=== PATIENT | female | born 1995 | race Caucasian/White ===

== ENCOUNTER 2018-01-10 16:11 | Emergency (ER) | payer OTHER ==
[~2018-01-10] VITALS: Ht 160 cm; Wt 69.9 kg
[2018-01-10 16:19] VITALS: BP 135/95
--- NOTE | 2018-01-10 16:50 | NUR ---
CALLED TO A BED, NO ANSWER
--- NOTE | 2018-01-10 16:52 | NUR ---
Jessica youssef in [facility] - 01/10/18 at 1656 by EVAN PATIENT AMB. TO BED #12
== END 2018-01-10 16:50 | disposition left against medical advice (07) ==
LOC: MED 16:11
DX: R51 Headache (principal); Z53.21 Procedure and treatment not carried out due to patient leaving prior to being seen by health care provider

== ENCOUNTER 2018-11-06 04:50 | Emergency (ER) | payer OTHER ==
[~2018-11-06] VITALS: Ht 160 cm; Wt 73.0 kg
[2018-11-06 04:56] VITALS: BP 139/113
[2018-11-06] MEDS ORDERED: KETOROLAC 60 MG/2 ML VIAL IM ONE (05:10)
[2018-11-06 05:34] VITALS: BP 139/113
== END 2018-11-06 05:34 | disposition home or self-care (01) ==
LOC: MED 04:50
DX: S93.401A Sprain of unspecified ligament of right ankle, initial encounter (principal); R03.0 Elevated blood-pressure reading, without diagnosis of hypertension; X50.1XXA Overexertion from prolonged static or awkward postures, initial encounter; Y93.89 Activity, other specified; Y92.89 Other specified places as the place of occurrence of the external cause; Y99.8 Other external cause status
CPT/HCPCS: 73610; 96372; 99283; J1885; Q0092